=== PATIENT | female | born 1965 | race Caucasian/White ===

== ENCOUNTER 2017-09-03 15:03 | Outpatient (CLI) | payer OTHER ==
--- NOTE | 2017-09-03 16:10 | XRAY Report ---
THREE VIEW RIGHT HAND: 09/03/2017 CLINICAL INDICATION: Pain. FINDINGS: AP, lateral, and oblique views of the right hand demonstrate no evidence of fracture or di slocation. The joint spaces are preserved. No radiopaque foreign body is seen in the soft tissues. IMPRESSION: NORMAL RIGHT HAND. JOB #: [id number] EXT JOB #:[id number]
== END 2017-09-03 15:04 | disposition home or self-care (01) ==
LOC: DI 15:03
PROVIDERS: ATTEND Internal Medicine
DX: M79.641 Pain in right hand (principal)

== ENCOUNTER 2020-09-22 10:50 | Outpatient (CLI) | payer OTHER ==
--- NOTE | 2020-09-22 12:17 | CT Report ---
PROCEDURE: Sinuses INDICATIONS: CHRONIC PANSINUSITIS TECHNIQUE: Noncontrast 3.0 mm axial images acquired from the frontal sinuses to the mid-sella, with coronal and sagittal reformats. For radiation dose reduction, the following was used: automated exposure control , adjustment of mA and/or kV according to patient size. COMPARISON: None. FINDINGS: Image quality: Excellent. Maxillary Sinuses: No bony remodeling or destruction. Minimal to mild mucosal thickening is seen wit hin the inferior maxillary sinuses. Ethmoid Air Cells: No bony remodeling or destruction. Sinuses are clear. Sphenoid Sinuses: No bony remodeling or destruction. Sinuses are clear. Frontal Sinuses: No bony remodeling or destruction. Sinuses are clear. Ostiomeatal Complexes: Ostiomeatal complexes are patent. No Chago cells. Miscellaneous: Visualized intra-orbital contents are normal. 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 T here is mild S-shaped nasal septal deviation. IMPRESSION: Minimal to mild mucosal thickening is seen within the inferior maxillary sinuses, without additional significant paranasal sinus disease. Left-sided ambrosio bullosa, with mild S-shaped nasal septal deviation. Reviewed by: Matheus Richards MD on 09/22/2020 11:16 AM BENJAMÍN Approved by: Mathesu Richards MD on 09/22/2020 11:16 AM AKCARLOS Station ID: [id number]
== END 2020-09-22 10:51 | disposition home or self-care (01) ==
LOC: DI 10:50
PROVIDERS: ATTEND Otolaryngology
DX: J34.2 Deviated nasal septum (principal)
CPT/HCPCS: 70486

== ENCOUNTER 2023-04-20 07:48 | Outpatient (CLI) | payer OTHER ==
[2023-04-20 08:34] LABS: THYROID STIMULATING HORMONE 2.36 uIU/mL (0.34-5.60)
[2023-04-20 11:55] LABS: ESTIMATED AVERAGE GLUCOSE 114 mg/dL (70-100); HEMOGLOBIN A1c% 5.6 % (4.27-6.07)
== END 2023-04-20 07:49 | disposition home or self-care (01) ==
LOC: LAB 07:48
PROVIDERS: ATTEND Nurse Practitioner Family
DX: E55.9 Vitamin D deficiency, unspecified (principal); E03.9 Hypothyroidism, unspecified; R73.9 Hyperglycemia, unspecified; E78.5 Hyperlipidemia, unspecified
CPT/HCPCS: 36415; 82306; 83036; 84443

== ENCOUNTER 2023-07-12 14:55 | Outpatient (CLI) | payer OTHER ==
--- NOTE | 2023-07-16 12:15 | Mammography Report ---
BILATERAL DIGITAL SCREENING MAMMOGRAM 3D/2D WITH EXAGGERATED CC: 07/12/2023 CLINICAL: Baseline exam. Routine screening. No prior exams were available for comparison. Both breasts are extremely dense, which lowers the sensitivity of mammography (category d />75% gland ular tissue). There are possible grouped dystrophic calcifications in the right breast posterior depth inferior reg ion seen on the mediolateral oblique view only. There is a focal asymmetry in the left breast at 12 o'clock anterior depth. No other significant masses or calcifications are seen in either breast. IMPRESSION: INCOMPLETE: NEEDS ADDITIONAL IMAGING EVALUATION The grouped calcifications, possibly benign dystrophic in morphology, in the right breast posterior d epth inferior region seen on the mediolateral oblique view only are indeterminate. Additional views are recommended. The focal asymmetry in the left breast at 12 o'clock anterior depth is indeterminate. Additional vie ws with possible ultrasound are recommended. Based on the Tyrer Cuzick model (a risk assessment model) the patients lifetime risk is 19.2% and he r 10 year risk is 6.9%. According to the ACR, ACS, and NCCN guidelines, an annual breast MRI exam roselyn ng with mammogram is recommended if the patients lifetime risk is 20% or greater. This exam was interpreted at Station ID: [id number]. NOTE: For mammograms, a report in lay terms will be sent to the patient. Approximately 15% of breast malignancies will not be visualized mammographically. In the management of a palpable breast mass, a negative mammogram must not discourage biopsy of a clinically suspicious lesion. Electronically Signed By: Gatito Patrick M.D. lc/:07/13/2023 14:42:23 ACR BI-RADS Category 0: Incomplete 3340F PARENCHYMAL PATTERN: (VD) - The breast(s) demonstrate(s) extremely dense parenchyma, limiting the sen sitivity of mammography. BI-RADS CATEGORY: (0) - 0 Mammo and [place] [id number] Immediate follow-up LATERALITY: (B)
== END 2023-07-12 14:56 | disposition home or self-care (01) ==
LOC: DI 14:55
PROVIDERS: ATTEND Nurse Practitioner Family
DX: Z12.31 Encounter for screening mammogram for malignant neoplasm of breast (principal); R92.1 Mammographic calcification found on diagnostic imaging of breast; R92.8 Other abnormal and inconclusive findings on diagnostic imaging of breast

== ENCOUNTER 2024-01-01 08:00 | Outpatient (CLI) | payer OTHER ==
--- NOTE | 2024-01-02 09:46 | Ultrasound Report ---
PROCEDURE: Renal (Retroperitoneal) INDICATIONS: NEOPLASM OF UNCERTAIN BEHAVIOR OF UNSPECIFIED KIDN. Per patient report, history of left kidney mass treated with cryosurgery. TECHNIQUE: Real-time scanning was performed of the retroperitoneal organs, with image documentation. COMPARISON: None. FINDINGS: Kidneys: Kidneys are normal in size. Right kidney measures 11.6 cm long; left kidney measures 11.6 cm long. Right renal cortical thickness is 1.2 cm; left renal cortical thickness is 1.4 cm. No hydro nephrosis or nephrolithiasis bilaterally. No right-sided mass. Isoechoic region in the left lower felipe e measuring 1.8 x 1.4 x 1.9 cm. Bladder: Pre-void bladder volume is 279 mL. Post-void residual is 12.6 mL. Pre-void images demonst rate no intraluminal masses or stones. On pre-void images, bilateral ureteral jets are noted with co raymon Doppler interrogation. (Of note, ureteral jets may not be detectable in up to 25% of cases due t o insufficient differences in specific gravity between ureteral and bladder urine). Miscellaneous: No free abdominal fluid. IMPRESSION: 1.No hydronephrosis or nephrolithiasis bilaterally. 2.Isoechoic region in the left renal lower pole measuring 1.8 x 1.4 x 1.9 cm which may represent post surgical sequela from history of prior cryosurgery versus a mass. Recommend comparison with prior alvaro ging, if available. Otherwise, consider a CT or MR (renal mass protocol) for further evaluation. 3.Bladder is unremarkable. Reviewed by: Cheyanne Nguyen MD on 01/02/2024 9:44 AM PST Approved by: Cheyanne Nguyen MD on 01/02/2024 9:44 AM PST Station ID: [id number]
== END 2024-01-01 23:59 | disposition home or self-care (01) ==
LOC: DI 08:00
PROVIDERS: ATTEND Nurse Practitioner Family
DX: D41.00 Neoplasm of uncertain behavior of unspecified kidney (principal)

== ENCOUNTER 2024-05-18 09:37 | Outpatient (CLI) | payer OTHER ==
[2024-05-18 10:57] LABS: BASOPHILS % (AUTO) 0.7 %; EOSINOPHILS # (AUTO) 0.1 10^3/uL (0.0-0.7); EOSINOPHILS % (AUTO) 1.8 %; HCT - HEMATOCRIT 38.2 % (37.0-47.0); HGB - HEMOGLOBIN 12.5 g/dL (12.0-16.0); LYMPHOCYTES # (AUTO) 1.5 10^3/uL (1.5-3.5); LYMPHOCYTES % (AUTO) 26.8 %; MEAN CORPUSCULAR HGB CONC 32.7 g/dL (32.0-36.0); MEAN CORPUSCULAR VOLUME 91.6 fL (81.0-99.0); MEAN PLATELET VOLUME 9.8 fL (7.9-10.8); MONOCYTES # (AUTO) 0.5 10^3/uL (0.0-1.0); MONOCYTES % (AUTO) 9.6 %; NEUTROPHILS # (AUTO) 3.3 10^3/uL (1.5-6.6); NEUTROPHILS % (AUTO) 60.9 %; PLT - PLATELET COUNT 268 10^3/uL (130-450); RED BLOOD COUNT 4.17 10^6/uL (4.20-5.40); RED CELL DISTRIBUTION WIDTH 13.3 % (12.0-15.0); WHITE BLOOD COUNT 5.4 x10^3/uL (4.8-10.8)
[2024-05-18 11:08] LABS: ALBUMIN 4.4 g/dL (3.2-5.5); ALBUMIN/GLOBULIN RATIO 1.9 (1.0-2.2); ALKALINE PHOSPHATASE 45 IU/L (42-121); ALT ALANINE AMINOTRANSFERASE 10 IU/L (10-60); AST ASPARTATE AMINOTRANSFERASE 12 IU/L (10-42); BILIRUBIN,TOTAL 1.3 mg/dL (0.2-1.0); BUN - BLOOD UREA NITROGEN 12 mg/dL (6-20); CALCIUM 9.5 mg/dL (8.5-10.3); CARBON DIOXIDE - CO2 29 mmol/L (21-32); CHLORIDE 104 mmol/L (101-111); CHOL/HDL RATIO 2.6 (<4.4); CHOLESTEROL 239 mg/dL; CREATININE 0.6 mg/dL (0.6-1.3); GFR - MDRD 103 (>89); GLUCOSE 103 mg/dL (74-104); HDL CHOLESTEROL 92 mg/dL; LDL CHOLESTEROL,CALCULATED 136 mg/dL; LDL/HDL RATIO 1.5 (<4.4); POTASSIUM 4.1 mmol/L (3.5-4.5); SODIUM 137 mmol/L (135-145); TOTAL PROTEIN 6.7 g/dL (6.4-8.9); TRIGLYCERIDES 54 mg/dL (48-352); VLDL CHOLESTEROL 11 mg/dL
[2024-05-18 11:23] LABS: THYROID STIMULATING HORMONE 1.81 uIU/mL (0.34-5.60)
[2024-05-19 11:10] LABS: HCV AB Non Reactive (Non Reactive)
== END 2024-05-18 09:38 | disposition home or self-care (01) ==
LOC: LAB 09:37
PROVIDERS: ATTEND Nurse Practitioner Family
DX: E03.9 Hypothyroidism, unspecified (principal); M81.0 Age-related osteoporosis without current pathological fracture; Z11.59 Encounter for screening for other viral diseases; Z13.220 Encounter for screening for lipoid disorders; R41.3 Other amnesia
CPT/HCPCS: 36415; 80053; 80061; 82306; 83721; 83970; 84443; 85025; 86803